=== PATIENT | female | born 1985 | race American Indian/Alaskan Native ===

== ENCOUNTER 2020-02-27 12:47 | Outpatient (CLI) | payer OTHER ==
[2020-02-27] MEDS ORDERED: PRENATAL TABLE1 EAC1 PO (13:17)
[2020-02-27] MEDS ORDERED: HIERRO PO (13:18)
== END 2020-02-27 17:32 | disposition home or self-care (01) ==
LOC: OBS/DEL 12:47
PROVIDERS: ATTEND Obstetrics & Gynecology
DX: O26.893 Other specified pregnancy related conditions, third trimester (principal); M54.5 Low back pain; O23.43 Unspecified infection of urinary tract in pregnancy, third trimester

== ENCOUNTER 2020-03-24 13:45 | Inpatient (IN) | payer OTHER ==
[~2020-03-24] VITALS: Ht 154.9 cm; Wt 67.1 kg
[~2020-03-24 13:45] MED LIST: HIERRO PO; PRENATAL TABLE1 EAC1 PO
== END 2020-04-07 17:52 | disposition home or self-care (01) | DRG 798 ==
LOC: LDR 04-05 06:20 → OB/GYN 04-05 06:20
PROVIDERS: ADMIT Obstetrics & Gynecology; ATTEND Obstetrics & Gynecology
PROC: 10E0XZZ Delivery of Products of Conception, External Approach (ICD-10-PCS; principal; 2020-04-05)
PROC: 0KQM0ZZ Repair Perineum Muscle, Open Approach (ICD-10-PCS; 2020-04-05)
PROC: 0W8NXZZ Division of Female Perineum, External Approach (ICD-10-PCS; 2020-04-05)
PROC: 10907ZC Drainage of Amniotic Fluid, Therapeutic from Products of Conception, Via Natural or Artificial Opening (ICD-10-PCS; 2020-04-05)
PROC: 3E0P7VZ Introduction of Hormone into Female Reproductive, Via Natural or Artificial Opening (ICD-10-PCS; 2020-04-05)
PROC: 3E033VJ Introduction of Other Hormone into Peripheral Vein, Percutaneous Approach (ICD-10-PCS; 2020-04-05)
PROC: 4A1HXFZ Monitoring of Products of Conception, Cardiac Rhythm, External Approach (ICD-10-PCS; 2020-04-05)
PROC: 0UB70ZZ Excision of Bilateral Fallopian Tubes, Open Approach (ICD-10-PCS; 2020-04-06)
DX: O70.4 Anal sphincter tear complicating delivery, not associated with third degree laceration (principal); Z37.0 Single live birth; Z30.2 Encounter for sterilization; Z3A.39 39 weeks gestation of pregnancy; Z20.828 Contact with and (suspected) exposure to other viral communicable diseases